=== PATIENT | male | born 1990 | race Asian ===

== ENCOUNTER 2021-09-14 08:16 | Outpatient (CLI) | payer OTHER ==
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
[2021-09-14 09:15] VITALS: BP 114/74
== END 2021-09-14 08:17 | disposition home or self-care (01) ==
LOC: SC 08:16
PROVIDERS: ATTEND Nurse Practitioner Family
DX: R06.83 Snoring (principal); G47.8 Other sleep disorders; R06.81 Apnea, not elsewhere classified; E66.9 Obesity, unspecified; Z68.30 Body mass index [BMI] 30.0-30.9, adult
CPT/HCPCS: 99203; 99212

== ENCOUNTER 2021-10-09 13:59 | Outpatient (CLI) | payer OTHER | END 2021-10-09 14:00 | disposition home or self-care (01) | LOC: SC 13:59 | PROVIDERS: ATTEND Nurse Practitioner Family | DX: G47.33 Obstructive sleep apnea (adult) (pediatric) (principal); R09.02 Hypoxemia; R00.0 Tachycardia, unspecified | CPT/HCPCS: 95806 ==

== ENCOUNTER 2021-12-24 17:17 | Emergency (ER) | payer OTHER ==
[2021-12-24 17:26] VITALS: BP 147/98
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
== END 2021-12-24 17:54 | disposition home or self-care (01) ==
LOC: ED 17:17
DX: S01.511A Laceration without foreign body of lip, initial encounter (principal); W26.8XXA Contact with other sharp object(s), not elsewhere classified, initial encounter; Y93.89 Activity, other specified; Y99.1 Military activity
CPT/HCPCS: 12011; 99281

== ENCOUNTER 2021-12-30 17:12 | Emergency (ER) | payer OTHER ==
[2021-12-30 17:20] VITALS: BP 146/97
[2021-12-30] MEDS ORDERED: DEXAMETHASONE 10 MG/ML VIAL PO STA (17:30)
[2021-12-30] MEDS ORDERED: CHERRY SYRUP 10 ML UDC PO ONE (17:30)
--- NOTE | 2021-12-30 17:41 | ED Physician Documentation ---
History of Present Illness - Stated complaint Stated Complaint: NECK PX - Chief complaint Chief Complaint: Heent - Additonal information Additional information: 31-year-old male presents emergency department for evaluation of pain on the rig ht side of his throat. Symptoms began a few days ago. He went to [facility] and was prescribed a lozenge but the symptoms have worsened and now he is having subjective fevers. No dysphonia. Normal swallow and tolerating his oral secretions. No history of similar in the past. Immunizations and COVID up-to-date. No tobacco use Review of Systems Constitutional: denies: Fever, Chills Eyes: reports: Reviewed and negative Throat: reports: Oral lesions / sores, Sore throat Cardiac: reports: Reviewed and negative Respiratory: reports: Reviewed and negative GI: reports: Reviewed and negative : reports: Reviewed and negative PD PAST MEDICAL HISTORY - Past Medical History Cardiovascular: None Respiratory: None Neuro: None Endocrine/Autoimmune: None GI: None : None HEENT: None Psych: None Musculoskeletal: None Derm: None - Past Surgical History Past Surgical History: No - Present Medications Home Medications: Ambulatory Orders Medication Instructions Recorded Confirmed Lidocaine Viscous 2% [Xylocaine 10 ml MM Q8H PRN #100 ml 12/30/21 Viscous 2%] - Allergies Allergies/Adverse Reactions: Allergies Allergy/AdvReac Type Severity Reaction Status Date / Time Sulfa (Sulfonamide Allergy Unknown Verified 12/30/21 17:20 Antibiotics) - Social History Does the pt smoke?: No Smoking Status: Never smoker Does the pt have substance abuse?: No - Immunizations Immunizations are current?: Yes PD ED PE EXPANDED - General General: Alert, No acute distress, Well developed/nourished - HEENT HEENT: Pharyngeal erythema (Shallow 1 cm ulceration on the right tonsillar bed. No exudate. Uvula is midline. No tender anterior cervical lymphadenopathy. Normal phonation, normal swallow. No trismus.), Oral lesions / sores (1 cm ulce ration right tonsillar bed). No: Swollen tonsils, Tonsillar exudate, Soft palate petecchiae - Neck Neck: Supple w/out meningeal sx. No: Adenopathy Results - Vitals Vitals: Vital Signs - 24 hr 12/30/21 17:15 Temperature 36.3 C L Heart Rate 62 Respiratory 16 Rate Blood Pressure 146/97 H O2 Saturation 100 Oxygen O2 Source Room air - Labs Labs: Laboratory Tests 12/30/21 12/30/21 17:30 17:30 Nasal Adenovirus (PCR) NOT DETECTED Nasal B. parapertussis DNA (PCR) NOT DETECTED Nasal Coronavir 229E PCR NOT DETECTED Nasal Coronavir HKU1 PCR NOT DETECTED Nasal Coronavir NL63 PCR NOT DETECTED Nasal Coronavir OC43 PCR NOT DETECTED Nasal Enterovir/Rhinovir PCR NOT DETECTED Nasal Influenza B PCR NOT DETECTED Nasal Influenza A PCR NOT DETECTED Nasal Parainfluen 1 PCR NOT DETECTED Nasal Parainfluen 2 PCR NOT DETECTED Nasal Parainfluen 3 PCR NOT DETECTED Nasal Parainfluen 4 PCR NOT DETECTED Nasal RSV (PCR) NOT DETECTED Nasal B.pertussis DNA PCR NOT DETECTED Nasal C.pneumoniae (PCR) NOT DETECTED Donnie Human Metapneumo PCR NOT DETECTED Nasal M.pneumoniae (PCR) NOT DETECTED Nasal SARS-CoV-2 (PCR) NOT DETECTED Group A Strep Rapid Negative PD MEDICAL DECISION MAKING - ED course Complexity details: reviewed results, re-evaluated patient, considered differential, d/w patient ED course: 31-year-old male presents emergency department for evaluation of pain on the right side of his throat now for about 4 days. Has begun having subjective fevers. On exam he does have a shallow ulceration on his right tonsillar bed. No purulent exudate. Exam is not consistent with RPA or AGENT. Respiratory PCR is pending. However given the ulceration most bilingual inside sales representative Of a herpangina leg syndrome patient was given a dose of Decadron. Will be prescribed some v iscous lidocaine for further evaluation and management of pain Wyles make the recommendation for use of ibuprofen. I will personally follow-up the PCR results with the patient. 2114: Respiratory PCR is negative. Departure - Departure Disposition: 01 Home, Self Care Clinical Impression: Ulcer of tonsil Condition: Stable Record reviewed to determine appropriate education?: Yes Prescriptions: Lidocaine Viscous 2% [Xylocaine Viscous 2%] 10 ml MM Q8H PRN #100 ml PRN Reason: Pain Comments: You were seen today because you have pain in the right side of your throat. Your strep testing is negative. However on exam you do have a shallow ulceration near your right tonsil. This is typically caused by a virus. I will notify you later this evening only if the viral testing is positive. We gave you a one-time dose of a steroid today that should help with pain and inflammation over the next few days. In general take 600 mg of ibuprofen with food 2-3 times a day. I have also sent a prescription for lidocaine a solution that you can gargle and swallow every 8 hours to help with throat pain. If you find that this ulcer does not heal over the next 7 to 10 days, you are having worsening symptoms, inability to swallow or tolerate your oral secretions you should return immediately to the ER. Discharge Date/Time: 12/30/21 18:01
[2021-12-30 17:51] LABS: RAPID STREP SCREEN Negative (Negative)
[2021-12-30 18:33] LABS: B. PARAPERTUSSIS- RESP PCR PAN NOT DETECTED; B. PERTUSSIS- RESP PCR PANEL NOT DETECTED; C. PNEUMONIAE- RESP PCR PANEL NOT DETECTED; CORONAVIRUS 229E-RESP PCR NOT DETECTED; CORONAVIRUS HKU1-RESP PCR NOT DETECTED; CORONAVIRUS NL63-RESP PCR NOT DETECTED; CORONAVIRUS OC43-RESP PCR NOT DETECTED; HUMAN METAPNEUMOVIRUS NOT DETECTED; INFLUENZA A- RESP PCR PANEL NOT DETECTED; INFLUENZA B - RESP PCR PANEL NOT DETECTED; M. PNEUMONIAE- RESP PCR PANEL NOT DETECTED; PARAINFLUENZA VIRUS 1 NOT DETECTED; PARAINFLUENZA VIRUS 2 NOT DETECTED; PARAINFLUENZA VIRUS 3 NOT DETECTED; PARAINFLUENZA VIRUS 4 NOT DETECTED; RHINOVIRUS/ENTEROVIRUS NOT DETECTED; RSV- RESP PCR PANEL NOT DETECTED; SARS-CoV-2 -RESP PCR PANEL NOT DETECTED
== END 2021-12-30 18:01 | disposition home or self-care (01) ==
LOC: ED 17:12
DX: J35.8 Other chronic diseases of tonsils and adenoids (principal); Z20.822 Contact with and (suspected) exposure to COVID-19
CPT/HCPCS: 87070; 87430; 87633; 99282; 99283; A9270

== ENCOUNTER 2022-04-06 13:27 | Outpatient (CLI) | payer OTHER ==
[2022-04-06 13:48] VITALS: BP 135/94
--- NOTE | 2022-04-06 13:48 | SLEEP CARE CONSULTATION ---
Information from patient questionnaire entered by Ave Donato MA. I have reviewed and concur with the information entered by Ave Donato MA. This document represents the service I personally performed and the decisions made by , Katelyn Sawant ARNP. History of Present Illness Service Date and Time: 04/06/2022 1327 Previous diagnosis: Mild, Obstructive Sleep Apnea-Hypopnea Syndrome AHI: 5.4 (in 2021) Reason for follow up: other (5 month f/u; never received CPAP) Prior sleep studies: No Type of Sleep Study: Polysomnography (F/U POLY, 10/10/2021 [facility], [facility]) HPI additional information: ELDON WILKERSON was diagnosed to have mild, AHI 5.1, obstructive sleep apnea- hypopnea syndrome and returned today for five month follow-up. He was supposed to be set up with a CPAP machine but has not yet been set up. Sleep Study - Results Type of Sleep Study: Polysomnography (F/U POLY, 10/10/2021 [facility], [facility]) Prior sleep studies: No Subjective Initial [place] Sleepiness Scale score: 15 (08/2021) Current [place] Sleepiness Scale score: 18 Allergies and Home Medications Drug allergies reviewed: Yes (Sulfa) Home medication list reviewed: Yes (no changes) Review of Systems Review of systems same as previous: Yes (no changes) Physical Exam Vital signs obtained and entered by: CARLOS ORLANDO Blood Pressure: 135/94 Cuff size: wrist Heart Rate: 73 O2 Saturation: 97 Height: 5 ft 6.5 in Weight: 192 lb 9.6 oz Body Mass Index: 30.6 BMI Classification: Obese Impression and Plan 1. Obstructive Sleep Apnea-Hypopnea Syndrome, mild. He was not set up on a CPAP and comes in today to get a new prescription. He thought he was going to get a CPAP through his insurance but has not heard back from anyone to get him set up with the machine. The patient will be started on nasal autoCPAP therapy with pressure set at 4-15 cmH2O. Compliance guidelines also reviewed. A copy of compliance guidelines will be given for reference at check out. 2. Obesity, unspecified. Currently patients BMI is 30.6. Obesity increases the risk of apnea, CPAP pressure requirements and overall health risks especially cardiovascular and diabetes. Thus patient is advised to lose weight. * Nasal auto CPAP therapy, pressure at 4-15 cm H2O. * Attempt to lose weight. * Avoid alcohol consumption near bedtime. * Avoid supine sleep until using CPAP. * The patient is again cautioned about driving until sleepiness completely resolves. * Return one month after CPAP obtained. I will assess response to therapy and compliance at that time. Counseling Topics: Weight loss health impact Visit Type: In Office Time Spent with Patient (minutes): 11 Provider Statement: I spent 100% of the Face to Face Visit with the patient with greater than 50% spent counseling the patient and coordination of care.
== END 2022-04-06 13:28 | disposition home or self-care (01) ==
LOC: SC 13:27
PROVIDERS: ATTEND Nurse Practitioner Family
DX: G47.33 Obstructive sleep apnea (adult) (pediatric) (principal); E66.9 Obesity, unspecified; Z68.30 Body mass index [BMI] 30.0-30.9, adult
CPT/HCPCS: 99212

== ENCOUNTER 2022-07-12 09:07 | Outpatient (CLI) | payer OTHER ==
--- NOTE | 2022-07-12 09:46 | SLEEP CARE CONSULTATION ---
Information from patient questionnaire entered by Mariposa Charles. I have reviewed and concur with the information entered by Mariposa Charles. This document represents the service I personally performed and the decisions made by , Katelyn Sawant ARNP. History of Present Illness Service Date and Time: 07/12/2022 0907 Previous diagnosis: Mild, Obstructive Sleep Apnea-Hypopnea Syndrome AHI: 5.4 (in 2021) Reason for follow up: first compliance Equipment type: CPAP (RESMED Airsense 11 s/u 04/2022) Equipment obtained from: [facility] (got initial supplies) Mask style: Full face Backup mask available: No (will keep old mask when replaced) Last cushion change: 1 month+ Prior sleep studies: No Type of Sleep Study: Polysomnography (F/U POLY, 10/10/2021 [facility], POS) HPI additional information: ELDON WILKERSON was diagnosed to have mild, AHI 5.4, obstructive sleep apnea- hypopnea syndrome and returned today for CPAP therapy first compliance follow- up. Sleep Study - Results Type of Sleep Study: Polysomnography (F/U POLY, 10/10/2021 [facility], POS) Prior sleep studies: No CPAP Compliance Data - Data Reviewed with Patient Average duration of nightly device use: 4 hours 4 minutes Compliance rate %: 50 ( days used) Current pressure setting (cmH2O): 4-14 (median 8.2, avg 10.9, max 11.7) Average residual AHI: 1.7 Central apnea: 0.0 Obstructive apnea: 1.3 Hypopnea: 0.2 Subjective Missed days of use due to: reports: other (will take mask off while sleeping) Patient concerns: reports: air blowing in eyes (just with moving in sleep, adjustments helps), mask leak noise, dry mouth, nose, throat (dry mouth), other (occasional headaches). denies: aerophagia, mask discomfort, condensation in mask/hose, nasal congestion, epistaxis Observed to snore while using device: No Current pressure setting perceived as: comfortable On therapy, patient: reports: sleeping better, awakening more refreshed, being more awake and alert during the day, more rested overall. denies: drowsiness while driving Initial [place] Sleepiness Scale score: 15 (08/2021) Current [place] Sleepiness Scale score: 16 (07/12/22) Allergies and Home Medications Known drug allergies: Yes (sulfa) Drug allergies reviewed: Yes Home medication list reviewed: Yes (no changes) Allergy and home medication list: Allergies Sulfa (Sulfonamide Antibiotics) Allergy (Verified 07/11/22 15:33) Unknown Review of Systems Review of systems same as previous: Yes (no changes) Physical Exam Vital signs obtained and entered by: MARIPOSA Orr MA Blood Pressure: 120/80 (LEFT ARM) Cuff size: regular Heart Rate: 72 O2 Saturation: 97 Height: 5 ft 6.5 in Weight: 200 lb Body Mass Index: 31.8 BMI Classification: Obese Impression and Plan 1. Obstructive Sleep Apnea-Hypopnea Syndrome, mild, with fair treatment compliance and good apnea control. On CPAP therapy, the patient has better sleep quality and is more rested overall. His compliance has been affected by him taking the mask off during the night when mostly asleep. He has also had some dry mouth with leak noises. I advised him to adjust his humidity if needed to reduce oral dryness. He states adjusting his mask takes care of mask leak noise and air leaking into his eyes. He feels he could use more air at the beginning of the night and sometimes he has some air hunger in during the night. The patients pressure will be changed to autoCPAP 8-12 cmH20 to reflect pressures being used and for air hunger. I will also increase his ramp starting pressure to 6 cmH2O to reduce air hunger at beginning of night. Patient advised to contact me if pressure change is uncomfortable so that it can be adjusted. Goals for apnea control discussed. Patient's apnea severity and rationale for treatment to reduce apnea, improve sleep quality and reduce cardiovascular and cerebrovascular events was reviewed. He is going on deployment for about 45 days, we will follow up with him when he gets back into town. He was not planning on taking the CPAP with him, I advised him that he has not reached compliance for insurance and that he should take the machine with him and use it. He voiced understanding and agreement. 2. Obesity, unspecified. Currently patients BMI is 31.8. Obesity increases the risk of apnea, CPAP pressure requirements and overall health risks especially cardiovascular and diabetes. Thus patient is advised to lose weight. * Change auto CPAP pressure to 8-12 cmH2O * Increase ramp starting pressure to 6 cmH2O * Notify me if snoring with mask or feeling that the pressure is too much or too little * Attempt to lose weight * Call this office if any problems using CPAP * Return for follow up in 1-2 months, or sooner if concerns arise Counseling Topics: Spare mask, Weight loss health impact Visit Type: In Office Time Spent with Patient (minutes): 22 Provider Statement: I spent 100% of the Face to Face Visit with the patient with greater than 50% spent counseling the patient and coordination of care.
[2022-07-12 09:47] VITALS: BP 120/80
== END 2022-07-12 09:08 | disposition home or self-care (01) ==
LOC: SC 09:07
PROVIDERS: ATTEND Nurse Practitioner Family
DX: G47.33 Obstructive sleep apnea (adult) (pediatric) (principal); E66.9 Obesity, unspecified; Z68.31 Body mass index [BMI] 31.0-31.9, adult
CPT/HCPCS: 99212; 99213

== ENCOUNTER 2022-08-23 14:07 | Outpatient (CLI) | payer OTHER ==
--- NOTE | 2022-08-23 14:42 | Sleep Patient Instructions ---
Sleep Center Visit Summary - Patient Visit Information Reason for Visit: 6 week CPAP Therapy followup - Patient Instructions Additional Instructions: You will continue with CPAP therapy with pressure changed to 9-11 cmH2O. We encourage you to continue to try to lose weight. Please follow up with the sleep care office in 1-2 months. - Clinic Information Contact: [facility] [address] [place] [phone] [email or web address] T: [phone]
[2022-08-23 14:59] VITALS: BP 132/80
--- NOTE | 2022-08-23 14:59 | SLEEP CARE CONSULTATION ---
Information from patient questionnaire entered by Mariposa Charles. I have reviewed and concur with the information entered by Mariposa Charles. This document represents the service I personally performed and the decisions made by , Katelyn Sawant ARNP. History of Present Illness Service Date and Time: 08/23/2022 1407 Previous diagnosis: Mild, Obstructive Sleep Apnea-Hypopnea Syndrome AHI: 5.4 (in 2021) Reason for follow up: other (6 WEEK F/U) Equipment type: CPAP (Resmed Airsense 11, s/u 04/2022) Equipment obtained from: [employer] (getting supplies as needed) Mask style: Full face Backup mask available: No (will keep old mask when replaced) Last cushion change: 2 months + Prior sleep studies: No Type of Sleep Study: Polysomnography (F/U POLY, 10/10/2021 [facility], [facility]) HPI additional information: ELDON WILKERSON was diagnosed to have mild, AHI 5.4, obstructive sleep apnea- hypopnea syndrome and returned today for CPAP therapy six week with pressure change follow-up. Sleep Study - Results Type of Sleep Study: Polysomnography (F/U POLY, 10/10/2021 [facility], POS) Prior sleep studies: No CPAP Compliance Data - Data Reviewed with Patient Average duration of nightly device use: 4 hours 58 minutes Compliance rate %: 67 (29/30 days used) Current pressure setting (cmH2O): 4-14 (median 8.6, avg 10.4, max 11.0) Average residual AHI: 1.0 Central apnea: 0.1 Obstructive apnea: 0.7 Average large leak: 2.7 L/min Subjective Patient concerns: reports: dry mouth, nose, throat (dry mouth, occasional). denies: aerophagia, mask discomfort, air blowing in eyes, mask leak noise, condensation in mask/hose, nasal congestion, epistaxis Observed to snore while using device: No Current pressure setting perceived as: comfortable On therapy, patient: reports: sleeping better, awakening more refreshed, being more awake and alert during the day, more rested overall. denies: drowsiness while driving Initial [place] Sleepiness Scale score: 15 (08/2021) Current [place] Sleepiness Scale score: 15 (08/23/2022) Allergies and Home Medications Known drug allergies: Yes (Sulfa) Drug allergies reviewed: Yes Home medication list reviewed: Yes (no changes) Allergy and home medication list: Allergies Sulfa (Sulfonamide Antibiotics) Allergy (Verified 08/22/22 09:23) Unknown Review of Systems Review of systems same as previous: Yes (no changes) Physical Exam Vital signs obtained and entered by: MARIPOSA Orr MA Blood Pressure: 132/80 (LEFT ARM) Cuff size: regular Heart Rate: 68 O2 Saturation: 97 Height: 5 ft 6.5 in Weight: 196 lb 3.2 oz Body Mass Index: 31.1 BMI Classification: Obese Impression and Plan 1. Obstructive Sleep Apnea-Hypopnea Syndrome, mild, with good treatment compliance and good apnea control. On CPAP therapy, the patient has better sleep quality and is more rested overall. He has brought his compliance up to 67% but we need 70%. He voiced understanding. The patients pressure will be changed to autoCPAP 9-11 cmH20 to reflect pressures being used. Patient advised to contact me if pressure change is uncomfortable so that it can be adjusted. Goals for apnea control discussed. Patient's apnea severity and rationale for treatment to reduce apnea, improve sleep quality and reduce cardiovascular and cerebrovascular events was reviewed. 2. Obesity, unspecified. Currently patients BMI is 31.1. Obesity increases the risk of apnea, CPAP pressure requirements and overall health risks especially cardiovascular and diabetes. Thus patient is advised to lose weight. * Change auto CPAP pressure to 9-11 cmH2O * Notify me if snoring with mask or feeling that the pressure is too much or too little * Attempt to lose weight * Call this office if any problems using CPAP * Return for follow up in 1-2 months, or sooner if concerns arise Counseling Topics: Spare mask, Weight loss health impact Visit Type: In Office Time Spent with Patient (minutes): 21 Provider Statement: I spent 100% of the Face to Face Visit with the patient with greater than 50% spent counseling the patient and coordination of care.
== END 2022-08-23 14:08 | disposition home or self-care (01) ==
LOC: SC 14:07
PROVIDERS: ATTEND Nurse Practitioner Family
DX: G47.33 Obstructive sleep apnea (adult) (pediatric) (principal); E66.9 Obesity, unspecified; Z68.31 Body mass index [BMI] 31.0-31.9, adult
CPT/HCPCS: 99212; 99213